=== PATIENT | male | born 1980 | race Two or more races ===

== ENCOUNTER 2018-07-04 09:23 | Emergency (ER) | payer MEDICAID ==
[~2018-07-04] VITALS: Ht 167.6 cm; Wt 74.4 kg
[2018-07-04 09:41] VITALS: BP 129/90
[2018-07-04] MEDS ORDERED: DEXAMETHASONE SOD PHOS 10MG/1ML VIAL INJ IM ONE (11:30)
[2018-07-04] MEDS ORDERED: KETOROLAC TROMETH 60MG/2ML VIAL IM ONE (11:30)
== END 2018-07-04 12:21 | disposition home or self-care (01) ==
LOC: ER 09:23
DX: S33.5XXA Sprain of ligaments of lumbar spine, initial encounter (principal); X50.1XXA Overexertion from prolonged static or awkward postures, initial encounter; Y93.39 Activity, other involving climbing, rappelling and jumping off; Y92.39 Other specified sports and athletic area as the place of occurrence of the external cause; Y99.8 Other external cause status
CPT/HCPCS: 72100; 96372; 99283; J1100; J1885

== ENCOUNTER 2020-12-03 21:53 | Emergency (ER) | payer SELFPAY ==
[~2020-12-03] VITALS: Ht 165.1 cm; Wt 74.8 kg
[2020-12-04 00:26] VITALS: BP 147/101
[2020-12-04] MEDS ORDERED: BENZOCAINE (DENTAL) 20 % SPRAY 60ML MT ONE (01:45)
[2020-12-04] MEDS ORDERED: ACETAMINOPHEN/CODEINE#3 (300/30mg) TAB PO ONE (01:45)
[2020-12-04] MEDS ORDERED: ONDANSETRON ODT 4 MG TAB PO ONE (01:45)
== END 2020-12-04 01:59 | disposition home or self-care (01) ==
LOC: ER 21:56
DX: K08.89 Other specified disorders of teeth and supporting structures (principal); K00.0 Anodontia
CPT/HCPCS: 99283; Q0162